=== PATIENT | female | born 1955 | race Caucasian/White ===

== ENCOUNTER 2024-02-03 13:18 | Outpatient (AMB) | payer OTHER, MEDICAID, SELFPAY ==
[2024-02-03 13:46] VITALS: BP 113/79; PULSE 91; RESP 18; TEMP 36.3; O2SAT 91; BMI 34.2
--- NOTE | 2024-02-03 13:46 | PD.ORTHCLVIS ---
Vital signs 02/03/24 13:46 Height 1.75 m Height Method Stated Weight 104.837 kg Weight Measurement Method Standing Scale BMI 34.2 BP 113/79 Blood Pressure Source Automatic Cuff Blood Pressure Location Right Upper Arm Position Sitting Respiration 18 Pulse 91 Pulse Source Monitor Temp 97.3 F Temp Source Temporal Artery Scan Pulse Oximetry (%) 91 L Oxygen Delivery Method Room Air Med/Allergies Allergies & Medications Allergies No Known Allergies Allergy (Verified 02/03/24 13:48) Medication Reconciliation alprazolam 2 mg tablet 2 mg PO QDAY 11/22/21 [History Confirmed 02/03/24] baclofen 10 mg tablet 10 mg PO TID 11/22/21 [History Confirmed 02/03/24] citalopram 40 mg tablet 40 mg PO DAILY 11/22/21 [History Confirmed 02/03/24] ergocalciferol (vitamin D2) 25,000 unit capsule 50,000 unit PO QWEEK 11/22/21 [History Confirmed 02/03/24] pregabalin 100 mg capsule 100 mg PO BID 11/22/21 [History Confirmed 02/03/24] trazodone 100 mg tablet 100 mg PO QDAY 11/22/21 [History Confirmed 02/03/24] Subjective Visit Visit for: follow up visit, hip and knee Immunization / Flu Flu Vaccine in the Last 12 Months: No Flu Vaccine Exclusion Criteria: No Exclusion Criteria History of Present Illness Chief complaint: F/U HIP AND KNEE PAIN Deb is a pleasant 67-year-old female who presents today for bilateral knee pain. She reports the right knee is worse than the left. This been ongoing for several years. She tried meloxicam and diclofenac. The last injections were three months ago and she has been doing well until a week ago. The pain is affecting her quality life. She is unable to walk greater than 2 blocks. She wants bialteral knee injections today. Pain Pain level (0-10): 4 Pain duration: ALL DAY Pain location: groin, inside (medial), outside (lateral), anterior and posterior Pain quality: sharp, dull and aching Pain timing: increases with activity Associated signs & symptoms: stiffness Ambulatory data Ambulatory device: none Treatments Improvement with previous injections: No Improvement with PT: No Improvement with NSAIDS: n/a Review of Systems Review of Systems: All systems negative unless otherwise noted in HPI. Exam Exam Patient is in no acute distress and is cooperative with the examination today. Breathing is nonlabored. In no respiratory distress. Bilateral extremities were evaluated and demonstrates sensation intact to light touch. Palpable pedal pulses are present. No significant edema is present. Bilateral hips were examined. The patient has no pain with log roll of the hips. Internal rotation to 30 degrees and external rotation to 30 degrees is painless. Negative FADIR. The left knee was examined. The left knee is in [varus] alignment. Range of motion from [0-115] degrees. Knee is stable to varus and valgus as well as AP translation with <5mm. Patient has a [negative] McMurrays. There is [no] pain with patellofemoral compression and [no] crepitus noted. The knee is [tender] to palpation [medially]. The right knee was also examined. The right knee is in [varus] alignment. Range of motion from [0-120] degrees. Knee is stable to varus and valgus as well as AP translation with <5mm. Patient has a [negative] McMurrays. There is [no] pain with patellofemoral compression and [no] crepitus noted. The knee is [tender] to palpation [medially]. X-rays demonstrate significant joint space narrowing and osteophytes. These are nonweightbearing films Assessment and Plan Problem List (1) Bilateral primary osteoarthritis of knee: Status: Acute Plan: Patient is a 67-year-old female with bilateral knee pain and bilateral knee osteoarthritis. The pain is affecting quality life and happiness. She would like repeat bilateral knee injections today. We also discussed weight loss, and physical therapy, and other conservative treatments Recommend knee cortisone injections as patient would like to proceed with conservative treatment at this time. The risks and benefits of the procedure were reviewed with the patient and patient gave verbal consent to continue with the procedure. Procedure: performed by Dr. Pablo Using sterile technique the Bilateral knees were thoroughly prepped with alcohol, and approximately 1 cc of Kenalog 40 mg/mL and 4 cc of 1% lidocaine was injected into each knee without resistance into the medial tibial femoral joint space. The patient tolerated the procedure. (2) Bilateral knee pain: Status: Acute Advanced Care Planning Discussion Advance care planning discussed with:: patient Office Procedures GNS Level of Care Nursing/Assessment Patient Status: Established Patient Nursing Assessment/Reassesment: Medication Reconciliation, Update PMH in EMR and Vital Signs Coordination of Care: Complex Care and Chronic Disease 1-5, Education Complex Pt/Fam, Consent,records obtained, informed consent, Results/Orders obtained and Staff clarify orders Established Patient Charge Established Patient Point Assignment: 95 Established Patient Point Charge: EP Level 3 (80-115) Surgical Proc/IM SQ injection Major Surgical Procedure: Yes (BILATERAL KNEE INJECTION) Medication Given Medication Given Medication Given: Yes Documented Dose Given: 8 Route: Infiitration Medication Given Medication Given Medication Given: Yes Documented Dose Given: 1 Route: Infiitration Office Meds Xylocaine 10 mg/mL (1 %) injection solution Performing Provider: Alan Pablo MD Performing Location: [facility] Administered by: Alan Pablo MD on 02/03/24 14:06 Dose Route Admin Location Dispensed Lot Number Expiration Date [facility] Lab [place] 40 mL Infiltration 40 mL [id number] 10/20/26 08724-776-24 [facility] triamcinolone acetonide 40 mg/mL suspension for injection Performing Provider: Alan Pablo MD Performing Location: [facility] Administered by: Alan Pablo MD on 02/03/24 14:06 Dose Route Admin Location Dispensed Lot Number Expiration Date [facility] Lab Head 80 mg Infiltration 2 mL [id number] 10/20/25 [address]-8 [employer] Past Medical History Past Medical History Have you ever been diagnosed with any of the following: Neurological Problems Seizures: No Cardiology Problems Congestive Heart Failure: No Respiratory Problems Chronic Obstructive Pulmonary Disease (COPD): No Genital/Urinary Problems Renal Disease: No Reproductive Problems Pelvic Inflammatory Disease: No Musculoskeletal Problems Fibromyalgia: Yes Endocrine Problems Diabetes Mellitus Type 1: No Diabetes Mellitus Type 2: No Psychologic Problems Depression: Yes Anxiety: Yes Other Problems Blood Transfusions: No Anesthesia Reactions: No
== END 2024-02-03 14:19 | disposition home or self-care (01) ==
LOC: HODSRG 13:18
PROVIDERS: PCP Registered Nurse Community Health; Referring Provider Registered Nurse Community Health; Supervising Provider Orthopaedic Surgery Adult Reconstructive Orthopaedic Surgery; Visit Provider Orthopaedic Surgery Adult Reconstructive Orthopaedic Surgery
DX: M17.0 Bilateral primary osteoarthritis of knee (principal); M25.561 Pain in right knee; M25.562 Pain in left knee
CPT/HCPCS: 20610; 99213; J3301; J3490; G0463

== ENCOUNTER 2024-05-11 10:17 | Outpatient (AMB) | payer OTHER, MEDICAID, SELFPAY ==
[2024-05-11 11:02] VITALS: BP 146/85; PULSE 88; RESP 18; TEMP 36.3; O2SAT 95; BMI 34.5
--- NOTE | 2024-05-11 11:02 | PD.ORTHCLVIS ---
Vital signs 05/11/24 11:02 Height 1.75 m Height Method Stated Weight 105.914 kg Weight Measurement Method Standing Scale BMI 34.5 BP 146/85 H Blood Pressure Source Automatic Cuff Blood Pressure Location Left Upper Arm Position Sitting Respiration 18 Pulse 88 Pulse Source Monitor Temp 97.3 F Temp Source Temporal Artery Scan Pulse Oximetry (%) 95 Oxygen Delivery Method Room Air Med/Allergies Allergies & Medications Allergies No Known Allergies Allergy (Verified 05/11/24 11:02) Medication Reconciliation alprazolam 2 mg tablet 2 mg PO QDAY 11/22/21 [History Confirmed 05/11/24] Held on 11/22/21. Instructions: Resume on 11/23/21. baclofen 10 mg tablet 10 mg PO TID 11/22/21 [History Confirmed 05/11/24] citalopram 40 mg tablet 40 mg PO DAILY 11/22/21 [History Confirmed 05/11/24] ergocalciferol (vitamin D2) 25,000 unit capsule 50,000 unit PO QWEEK 11/22/21 [History Confirmed 05/11/24] pregabalin 100 mg capsule 100 mg PO BID 11/22/21 [History Confirmed 05/11/24] trazodone 100 mg tablet 100 mg PO QDAY 11/22/21 [History Confirmed 05/11/24] Held on 11/22/21. Instructions: Resume on 11/23/21. Exam Exam Patient is in no acute distress and is cooperative with the examination today. Breathing is nonlabored. In no respiratory distress. Bilateral extremities were evaluated and demonstrates sensation intact to light touch. Palpable pedal pulses are present. No significant edema is present. Bilateral hips were examined. The patient has no pain with log roll of the hips. Internal rotation to 30 degrees and external rotation to 30 degrees is painless. Negative FADIR. The left knee was examined. The left knee is in [varus] alignment. Range of motion from [0-115] degrees. Knee is stable to varus and valgus as well as AP translation with <5mm. Patient has a [negative] McMurrays. There is [no] pain with patellofemoral compression and [no] crepitus noted. The knee is [tender] to palpation [medially]. The right knee was also examined. The right knee is in [varus] alignment. Range of motion from [0-120] degrees. Knee is stable to varus and valgus as well as AP translation with <5mm. Patient has a [negative] McMurrays. There is [no] pain with patellofemoral compression and [no] crepitus noted. The knee is [tender] to palpation [medially]. X-rays demonstrate significant joint space narrowing and osteophytes. These are nonweightbearing films Assessment and Plan Problem List (1) Bilateral primary osteoarthritis of knee: Status: Acute Plan: Patient is a 67-year-old female with bilateral knee pain and bilateral knee osteoarthritis. The pain is affecting quality life and happiness. She would like repeat bilateral knee injections today. We also discussed weight loss, and physical therapy, and other conservative treatments Recommend knee cortisone injections as patient would like to proceed with conservative treatment at this time. The risks and benefits of the procedure were reviewed with the patient and patient gave verbal consent to continue with the procedure. Procedure: performed by Dr. Pablo Using sterile technique the Bilateral knees were thoroughly prepped with alcohol, and approximately 1 cc of Kenalog 40 mg/mL and 4 cc of 1% lidocaine was injected into each knee without resistance into the medial tibial femoral joint space. The patient tolerated the procedure. (2) Bilateral knee pain: Status: Acute Advanced Care Planning Discussion Advance care planning discussed with:: patient Office Procedures GNS Level of Care Nursing/Assessment Patient Status: Established Patient Nursing Assessment/Reassesment: Medication Reconciliation, Update PMH in EMR and Vital Signs Coordination of Care: Complex Care and Chronic Disease 1-5, Education Complex Pt/Fam, Consent,records obtained, informed consent, Results/Orders obtained and Staff clarify orders Established Patient Charge Established Patient Point Assignment: 95 Established Patient Point Charge: EP Level 3 (80-115) Surgical Proc/IM SQ injection Major Surgical Procedure: Yes (BILATERAL KNEE INJECTION) Medication Given Medication Given Medication Given: Yes Documented Dose Given: 8 Route: Infiitration Medication Given Medication Given Medication Given: Yes Documented Dose Given: 2 Route: Infiitration Office Meds Xylocaine 10 mg/mL (1 %) injection solution Performing Provider: Alan Pablo MD Performing Location: [facility] Administered by: Alan Pablo MD on 05/11/24 11:50 Dose Route Admin Location Dispensed Lot Number Expiration Date [facility] [place] 40 mL Infiltration 40 mL [id number] 09/21/27 82099-874-01 [facility] triamcinolone acetonide 40 mg/mL suspension for injection Performing Provider: Alan Pablo MD Performing Location: [facility] Administered by: Alan Pablo MD on 05/11/24 11:50 Dose Route Admin Location Dispensed Lot Number Expiration Date [place] 80 mg Infiltration 2 mL [id number] 08/20/25 0851-2964-58 [facility] [place] Intake Visit Data Collection New Patient or Established: Established Patient (seen at [facility] within 3 years) Reason for Visit:: BL KNEE INJECTION Seen by Clinical Staff ONLY (RN/MA): No Scrum Master Required: No PCP or OBGYN visit in last 3 months: Yes Hx Now: No Do You Feel Safe at Home: Yes Authorities Contacted: N/A Questionairres Past Medical History Past Medical History Have you ever been diagnosed with any of the following: Neurological Problems Seizures: No Cardiology Problems Congestive Heart Failure: No Respiratory Problems Chronic Obstructive Pulmonary Disease (COPD): No Genital/Urinary Problems Renal Disease: No Reproductive Problems Pelvic Inflammatory Disease: No Musculoskeletal Problems Fibromyalgia: Yes Endocrine Problems Diabetes Mellitus Type 1: No Diabetes Mellitus Type 2: No Psychologic Problems Depression: Yes Anxiety: Yes Other Problems Blood Transfusions: No Anesthesia Reactions: No Subjective Visit Visit for: follow up visit, knee (BILATERAL) and injections Immunization / Flu Flu Vaccine in the Last 12 Months: No Flu Vaccine Exclusion Criteria: No Exclusion Criteria History of Present Illness Chief complaint: Bilateral knee pain Deb is a pleasant 61 open female with bilateral knee pain and bilateral knee arthritis. The last knee injections worked for over 3 months. She would like new injections today. Pain Pain level (0-10): 4 Pain duration: ALL DAY Pain location: inside (medial) and anterior Pain quality: sharp and aching Pain timing: increases with activity and stairs Associated signs & symptoms: weakness Ambulatory data Ambulatory device: none Treatments Number of previous injections: 2 Improvement with previous injections: Yes Improvement with PT: No Improvement with NSAIDS: no Review of Systems Review of Systems: All systems negative unless otherwise noted in HPI.
== END 2024-05-11 11:20 | disposition home or self-care (01) ==
PROVIDERS: PCP Registered Nurse Community Health; Referring Provider Registered Nurse Community Health; Supervising Provider Orthopaedic Surgery Adult Reconstructive Orthopaedic Surgery; Visit Provider Orthopaedic Surgery Adult Reconstructive Orthopaedic Surgery
DX: M17.0 Bilateral primary osteoarthritis of knee (principal); M25.561 Pain in right knee; M25.562 Pain in left knee
CPT/HCPCS: 20610; 99213; J3301; J3490; G0463

== ENCOUNTER → 2024-06-29 | Outpatient (CLI) | payer OTHER, MEDICAID, SELFPAY ==
--- NOTE | 2024-06-29 11:15 | XR_ITS ---
Examination: Bilateral knees 2 views Right lateral knee left lateral knee 2 views Bilateral axial knees single view Technique: Bilateral AP knees standing single view, bilateral PA knees standing single view flexion Standing lateral right and left knees 2 views Bilateral axial knees single view total 5 views Exam date and time: June 29, 2024 1233 hrs. Indications: Bilateral knee pain beginning 5 years ago. Findings: Right knee advanced tricompartment osteoarthritis [id number] narrowing medial joint space right knee Left knee advanced tricompartment osteoarthritis [id number] narrowing lateral joint space left knee No patellar dislocation No fractures Impression: Bilateral advanced tricompartment osteoarthritis
== END | disposition home or self-care (01) ==
LOC: SDIM 11:06
PROVIDERS: PCP Registered Nurse Community Health; Referring Provider Orthopaedic Surgery Adult Reconstructive Orthopaedic Surgery; Visit Provider Orthopaedic Surgery Adult Reconstructive Orthopaedic Surgery
DX: M17.0 Bilateral primary osteoarthritis of knee (principal); M25.862 Other specified joint disorders, left knee; M25.861 Other specified joint disorders, right knee
CPT/HCPCS: 73564

== ENCOUNTER 2024-08-06 08:53 | Outpatient (AMB) | payer OTHER, MEDICAID, SELFPAY ==
[2024-08-06 09:24] VITALS: BP 114/76; PULSE 97; RESP 19; TEMP 36.4; O2SAT 97; BMI 34.5
--- NOTE | 2024-08-06 09:24 | ORTHONT_ITS ---
Vital signs 08/06/24 09:24 Height 1.75 m Height Method Stated Weight 105.829 kg Weight Measurement Method Standing Scale BMI 34.5 BP 114/76 Blood Pressure Source Automatic Cuff Blood Pressure Location Right Upper Arm Position Sitting Respiration 19 Pulse 97 Pulse Source Monitor Temp 97.5 F Temp Source Oral Pulse Oximetry (%) 97 Oxygen Delivery Method Room Air Med/Allergies Allergies & Medications Allergies No Known Allergies Allergy (Verified 08/06/24 09:25) Medication Reconciliation alprazolam 2 mg tablet 2 mg PO QDAY 11/22/21 [History Confirmed 08/06/24] Held on 11/22/21. Instructions: Resume on 11/23/21. baclofen 10 mg tablet 10 mg PO TID 11/22/21 [History Confirmed 08/06/24] citalopram 40 mg tablet 40 mg PO DAILY 11/22/21 [History Confirmed 08/06/24] ergocalciferol (vitamin D2) 25,000 unit capsule 50,000 unit PO QWEEK 11/22/21 [History Confirmed 08/06/24] pregabalin 100 mg capsule 100 mg PO BID 11/22/21 [History Confirmed 08/06/24] trazodone 100 mg tablet 100 mg PO QDAY 11/22/21 [History Confirmed 08/06/24] Held on 11/22/21. Instructions: Resume on 11/23/21. meloxicam 7.5 mg tablet 7.5 mg PO QDAY #45 tabs 08/06/24 [Rx] Exam Exam Patient is in no acute distress and is cooperative with the examination today. Breathing is nonlabored. In no respiratory distress. Bilateral extremities were evaluated and demonstrates sensation intact to light touch. Palpable pedal pulses are present. No significant edema is present. Bilateral hips were examined. The patient has no pain with log roll of the hips. Internal rotation to 30 degrees and external rotation to 30 degrees is painless. Negative FADIR. The left knee was examined. The left knee is in [varus] alignment. Range of motion from [0-115] degrees. Knee is stable to varus and valgus as well as AP translation with <5mm. Patient has a [negative] McMurrays. There is [no] pain with patellofemoral compression and [no] crepitus noted. The knee is [tender] to palpation [medially]. The right knee was also examined. The right knee is in [varus] alignment. Range of motion from [0-120] degrees. Knee is stable to varus and valgus as well as AP translation with <5mm. Patient has a [negative] McMurrays. There is [no] pain with patellofemoral compression and [no] crepitus noted. The knee is [tender] to palpation [medially]. X-rays demonstrate significant joint space narrowing and osteophytes. Assessment and Plan Problem List (1) Bilateral primary osteoarthritis of knee: Status: Acute Plan: Patient is a 67-year-old female with bilateral knee pain and bilateral knee osteoarthritis. The pain is affecting quality life and happiness. She would like repeat bilateral knee injections today. We also discussed weight loss, and physical therapy, and other conservative treatments Recommend knee cortisone injections as patient would like to proceed with conservative treatment at this time. The risks and benefits of the procedure were reviewed with the patient and patient gave verbal consent to continue with the procedure. Procedure: performed by Dr. Pablo Using sterile technique the Bilateral knees were thoroughly prepped with alcohol, and approximately 1 cc of Kenalog 40 mg/mL and 4 cc of 1% lidocaine was injected into each knee without resistance into the medial tibial femoral joint space. The patient tolerated the procedure. (2) Bilateral knee pain: Status: Acute Advanced Care Planning Discussion Advance care planning discussed with:: patient Office Procedures GNS Level of Care Nursing/Assessment Patient Status: Established Patient Nursing Assessment/Reassesment: Medication Reconciliation, Update PMH in EMR and Vital Signs Coordination of Care: Complex Care/Chronic Disease 5 or more, Education Complex Pt/Fam, Consent,records obtained, informed consent, 2-3 Insurance Autorizations needed, Results/Orders obtained and Staff clarify orders Established Patient Charge Established Patient Point Assignment: 125 Established Patient Point Charge: EP Level 4 (120-155) Surgical Proc/IM SQ injection Major Surgical Procedure: Yes (BILATERAL KNEE PAIN ) Medication Given Medication Given Medication Given: Yes Documented Dose Given: 8 Route: Infiitration Medication Given Medication Given Medication Given: Yes Documented Dose Given: 2 Route: Infiitration Office Meds Xylocaine 10 mg/mL (1 %) injection solution Performing Provider: Alan Pablo MD Performing Location: [facility] Administered by: Alan Pablo MD on 08/06/24 09:54 Dose Route Admin Location Dispensed Lot Number Expiration Date [facility] Manager Building 40 mL Infiltration KNEE 40 mL [id number] 10/23/27 67652-756-83 [facility] triamcinolone acetonide 40 mg/mL suspension for injection Performing Provider: Alan Pablo MD Performing Location: [facility] Administered by: Alan Pablo MD on 08/06/24 09:54 Dose Route Admin Location Dispensed Lot Number Expiration Date [facility] Manager Building 80 mg intra-articular KNEE 2 mL [id number] 02/21/26 4972-7899-14 [facility] [place] Intake Visit Data Collection New Patient or Established: Established Patient (seen at [facility] within 3 years) Reason for Visit:: BILATERAL KNEE INJECTIONS Seen by Clinical Staff ONLY (RN/MA): No Nutrition Educator Required: No PCP or OBGYN visit in last 3 months: Yes Hx Now: No Do You Feel Safe at Home: Yes Authorities Contacted: N/A Questionairres Past Medical History Past Medical History Have you ever been diagnosed with any of the following: Neurological Problems Seizures: No Cardiology Problems Congestive Heart Failure: No Respiratory Problems Chronic Obstructive Pulmonary Disease (COPD): No Smoking: Yes (1 A WEEK IF SHE FEELS LIKE IT PER PATIENT ) Smoking Cessation Counseling: Yes Genital/Urinary Problems Renal Disease: No Reproductive Problems Pelvic Inflammatory Disease: No Musculoskeletal Problems Fibromyalgia: Yes Endocrine Problems Diabetes Mellitus Type 1: No Diabetes Mellitus Type 2: No Psychologic Problems Depression: Yes Anxiety: Yes Other Problems Blood Transfusions: No Anesthesia Reactions: No Subjective Visit Visit for: follow up visit, knee and injections Immunization / Flu Flu Vaccine in the Last 12 Months: No Flu Vaccine Exclusion Criteria: No Exclusion Criteria History of Present Illness Chief complaint: BILATERAL KNEE INJECTIONS Deb is a pleasant 61 open female with bilateral knee pain and bilateral knee arthritis. Getting injections with us. The last injections have not worked for a long period of time. We discussed surgery today but she would want more injections Personal History Red flag PMH: smoker (1 A WEEK IF SHE FEELS LIKE IT PER PATIENT) BMI Counceling provided: Yes Pain Pain level (0-10): 5 Pain duration: ALL DAY Pain location: outside (lateral), anterior and posterior Pain quality: dull, aching and burning Pain timing: night, increases with activity and stairs Associated signs & symptoms: stiffness Ambulatory data Ambulatory device: none Treatments Number of previous injections: 2 Improvement with previous injections: Yes Improvement with PT: No Improvement with NSAIDS: yes Review of Systems Review of Systems: All systems negative unless otherwise noted in HPI.
== END 2024-08-06 09:54 | disposition home or self-care (01) ==
LOC: HODSRG 08:53
PROVIDERS: PCP Registered Nurse Community Health; Referring Provider Registered Nurse Community Health; Supervising Provider Orthopaedic Surgery Adult Reconstructive Orthopaedic Surgery; Visit Provider Orthopaedic Surgery Adult Reconstructive Orthopaedic Surgery
DX: M17.0 Bilateral primary osteoarthritis of knee (principal); M25.561 Pain in right knee; M25.562 Pain in left knee
CPT/HCPCS: 20610; 99213; 99214; J3301; J3490; G0463

== ENCOUNTER 2024-12-16 13:41 | Outpatient (AMB) | payer OTHER, MEDICAID, SELFPAY ==
--- NOTE | 2024-12-16 14:12 | ORTHONT_ITS ---
Vital signs 12/16/24 14:13 Height 1.75 m Height Method Stated Weight 108.437 kg Weight Measurement Method Standing Scale BMI 35.4 BP 131/81 H Blood Pressure Source Automatic Cuff Blood Pressure Location Left Upper Arm Position Sitting Respiration 19 Pulse 100 Pulse Source Monitor Temp 97.3 F Temp Source Temporal Artery Scan Pulse Oximetry (%) 92 L Oxygen Delivery Method Room Air Med/Allergies Allergies & Medications Allergies No Known Allergies Allergy (Verified 12/16/24 14:14) Medication Reconciliation alprazolam 2 mg tablet 2 mg PO QDAY 11/22/21 [History Confirmed 12/16/24] Held on 11/22/21. Instructions: Resume on 11/23/21. baclofen 10 mg tablet 10 mg PO TID 11/22/21 [History Confirmed 12/16/24] citalopram 40 mg tablet 40 mg PO DAILY 11/22/21 [History Confirmed 12/16/24] ergocalciferol (vitamin D2) 25,000 unit capsule 50,000 unit PO QWEEK 11/22/21 [History Confirmed 12/16/24] pregabalin 100 mg capsule 100 mg PO BID 11/22/21 [History Confirmed 12/16/24] trazodone 100 mg tablet 100 mg PO QDAY 11/22/21 [History Confirmed 12/16/24] Held on 11/22/21. Instructions: Resume on 11/23/21. meloxicam 7.5 mg tablet 7.5 mg PO QDAY #45 tabs 08/06/24 [Rx Confirmed 12/16/24] Exam Exam Patient is in no acute distress and is cooperative with the examination today. Breathing is nonlabored. In no respiratory distress. Bilateral extremities were evaluated and demonstrates sensation intact to light touch. Palpable pedal pulses are present. No significant edema is present. Bilateral hips were examined. The patient has no pain with log roll of the hips. Internal rotation to 30 degrees and external rotation to 30 degrees is painless. Negative FADIR. The left knee was examined. The left knee is in [varus] alignment. Range of motion from [0-115] degrees. Knee is stable to varus and valgus as well as AP translation with <5mm. Patient has a [negative] McMurrays. There is [no] pain with patellofemoral compression and [no] crepitus noted. The knee is [tender] to palpation [medially]. The right knee was also examined. The right knee is in [varus] alignment. Range of motion from [0-120] degrees. Knee is stable to varus and valgus as well as AP translation with <5mm. Patient has a [negative] McMurrays. There is [no] pain with patellofemoral compression and [no] crepitus noted. The knee is [tender] to palpation [medially]. X-rays demonstrate significant joint space narrowing and osteophytes. Assessment and Plan Problem List (1) Bilateral primary osteoarthritis of knee: Status: Acute Plan: Patient is a 67-year-old female with bilateral knee pain and bilateral knee osteoarthritis. The pain is affecting quality life and happiness. She would like repeat bilateral knee injections today. We also discussed weight loss, and physical therapy, and other conservative treatments Recommend knee cortisone injection as patient would like to proceed with conservative treatment at this time. The risks and benefits of the procedure were reviewed with the patient and patient gave verbal consent to continue with the procedure. Procedure: performed by Dr. Pablo Using sterile technique the Right knee was thoroughly prepped with alcohol, and approximately 1 cc of Depo-Medrol 80mg/mL and 4 cc of 0.2% ropivacaine was injected without resistance into the medial tibial femoral joint space. The patient tolerated the procedure. Recommend knee cortisone injection as patient would like to proceed with conservative treatment at this time. The risks and benefits of the procedure were reviewed with the patient and patient gave verbal consent to continue with the procedure. Procedure: performed by Dr. Pablo Using sterile technique the leftknee was thoroughly prepped with alcohol, and approximately 1 cc of Depo- Medrol 80mg/mL and 4 cc of 0.2% ropivacaine was injected without resistance into the medial tibial femoral joint space. The patient tolerated the procedure. (2) Bilateral knee pain: Status: Acute Advanced Care Planning Discussion Advance care planning discussed with:: patient Office Procedures GNS Level of Care Nursing/Assessment Patient Status: Established Patient Nursing Assessment/Reassesment: Medication Reconciliation, Update PMH in EMR and Vital Signs Coordination of Care: Complex Care and Chronic Disease 1-5, Education Complex Pt/Fam, Consent,records obtained, informed consent, Results/Orders obtained and Staff clarify orders Established Patient Charge Established Patient Point Assignment: 95 Established Patient Point Charge: EP Level 3 (80-115) Surgical Proc/IM SQ injection Minor Surgical Procedure: Yes (BILATERAL KNEE INJECTION) Medication Given Medication Given Medication Given: Yes Documented Dose Given: 1 Route: Infiitration Medication Given Medication Given Medication Given: Yes Documented Dose Given: 4 Route: Infiitration Medication Given Medication Given Medication Given: Yes Documented Dose Given: 4 Route: Infiitration Office Meds methylprednisolone acetate 80 mg/mL suspension for injection Performing Provider: Alan Pablo MD Performing Location: [facility] Administered by: Alan Pablo MD on 12/16/24 14:16 Dose Route Admin Location Dispensed Lot Number Expiration Date Pack age [facility] [employer] 80 mg intra-articular 1 mL [id number] 02/20/26 [address]-6 [id number] [employer] methylprednisolone acetate 80 mg/mL suspension for injection Performing Provider: Alan Pablo MD Performing Location: [facility] Administered by: Alan Pablo MD on 12/16/24 14:16 Dose Route Admin Location Dispensed Lot Number Expiration Date Pack age [facility] [employer] 80 mg intra-articular 1 mL [id number] 02/20/26 [address]-6 7 [id number] [employer] ropivacaine (PF) 2 mg/mL (0.2 %) injection solution Performing Provider: Alan Pablo MD Performing Location: [facility] Administered by: Alan Pablo MD on 12/16/24 14:16 Dose Route Admin Location Dispensed Lot Number Expiration Date Pack age [facility] [employer] 20 mL Infiltration 20 mL [id number] 04/22/27 02937-685-31 [id number] [employer] ropivacaine (PF) 2 mg/mL (0.2 %) injection solution Performing Provider: Alan Pablo MD Performing Location: [facility] Administered by: Alan Pablo MD on 12/16/24 14:16 Dose Route Admin Location Dispensed Lot Number Expiration Date Pack age [facility] [employer] 20 mL Infiltration 20 mL [id number] 04/22/27 40378-632-31 [id number] [facility] Intake Visit Data Collection New Patient or Established: Established Patient (seen at [facility] within 3 years) Reason for Visit:: 3 MTHS BILATERAL KNEE INJECTIONS Seen by Clinical Staff ONLY (RN/MA): No Nurse Assistant Required: No PCP or OBGYN visit in last 3 months: Yes Hx Now: No Do You Feel Safe at Home: Yes Authorities Contacted: N/A Questionairres Past Medical History Past Medical History Have you ever been diagnosed with any of the following: Neurological Problems Seizures: No Cardiology Problems Congestive Heart Failure: No Respiratory Problems Chronic Obstructive Pulmonary Disease (COPD): No Smoking: Yes (1 A WEEK IF SHE FEELS LIKE IT PER PATIENT ) Smoking Cessation Counseling: Yes Genital/Urinary Problems Renal Disease: No Reproductive Problems Pelvic Inflammatory Disease: No Musculoskeletal Problems Fibromyalgia: Yes Endocrine Problems Diabetes Mellitus Type 1: No Diabetes Mellitus Type 2: No Psychologic Problems Depression: Yes Anxiety: Yes Other Problems Blood Transfusions: No Anesthesia Reactions: No Subjective Visit Visit for: follow up visit, knee and injections Immunization / Flu Flu Vaccine in the Last 12 Months: No Flu Vaccine Exclusion Criteria: No Exclusion Criteria History of Present Illness Chief complaint: BILATERAL KNEE INJECTIONS Deb is a pleasant 61 open female with bilateral knee pain and bilateral knee arthritis. The last injections provided great relief and she would like new ones today Personal History Red flag PMH: smoker (1 A WEEK IF SHE FEELS LIKE IT PER PATIENT) BMI Counceling provided: Yes Pain Pain level (0-10): 5 Pain duration: ALL DAY Pain location: outside (lateral), anterior and posterior Pain quality: dull, aching and burning Pain timing: night, increases with activity and stairs Associated signs & symptoms: stiffness Ambulatory data Ambulatory device: none Treatments Number of previous injections: 2 Improvement with previous injections: Yes Improvement with PT: No Improvement with NSAIDS: yes Review of Systems Review of Systems: All systems negative unless otherwise noted in HPI.
[2024-12-16 14:13] VITALS: BP 131/81; PULSE 100; RESP 19; TEMP 36.3; O2SAT 92; BMI 35.4
== END 2024-12-16 14:20 | disposition home or self-care (01) ==
LOC: HODSRG 13:41
PROVIDERS: Absent Provider Orthopaedic Surgery Adult Reconstructive Orthopaedic Surgery; PCP Registered Nurse Community Health; Referring Provider Registered Nurse Community Health; Supervising Provider Orthopaedic Surgery Adult Reconstructive Orthopaedic Surgery; Visit Provider Orthopaedic Surgery Adult Reconstructive Orthopaedic Surgery
DX: M17.0 Bilateral primary osteoarthritis of knee (principal); M25.562 Pain in left knee; M25.561 Pain in right knee
CPT/HCPCS: 20610; 99213; J1010; J2795; G0463

== ENCOUNTER → 2025-03-21 | Outpatient (CLI) | payer MEDICARE, MEDICAID, SELFPAY ==
--- NOTE | 2025-03-21 14:45 | XR_ITS ---
EXAMINATION: Cervical spine 4 views TECHNIQUE: AP, lateral, swimmer's lateral, AP odontoid cervical spine 4 views Date and time: March 21, 2025, 1456 hours INDICATIONS: Status post cervical fusion February 23, 2025. FINDINGS: Posterior transpedicular stabilization C1-C2 with satisfactory alignment Mild degenerative disc disease C4-C5, C5-C6, C6-C7 Intact odontoid IMPRESSION: Posterior transpedicular stabilization C1-C2 with satisfactory alignment
== END | disposition home or self-care (01) ==
LOC: SDIM 14:34
PROVIDERS: Referring Provider Physician Assistant; Visit Provider Physician Assistant
DX: Z98.1 Arthrodesis status (principal); M43.22 Fusion of spine, cervical region; Z98.890 Other specified postprocedural states
CPT/HCPCS: 72040

== ENCOUNTER 2025-03-22 13:22 | Outpatient (AMB) | payer MEDICARE, MEDICAID, SELFPAY ==
[2025-03-22 13:48] VITALS: BP 122/73; PULSE 99; RESP 16; TEMP 36.1; O2SAT 94; BMI 35.3
--- NOTE | 2025-03-22 13:48 | PD.ORTHCLVIS ---
Vital signs 03/22/25 13:48 Height 1.75 m Height Method Stated Weight 108.125 kg Weight Measurement Method Standing Scale BMI 35.3 BP 122/73 Blood Pressure Source Automatic Cuff Blood Pressure Location Left Upper Arm Position Sitting Respiration 16 Pulse 99 Pulse Source Monitor Temp 97.0 F Temp Source Temporal Artery Scan Pulse Oximetry (%) 94 L Oxygen Delivery Method Room Air Med/Allergies Allergies & Medications Allergies No Known Allergies Allergy (Verified 03/22/25 13:48) Medication Reconciliation alprazolam 2 mg tablet 2 mg PO QDAY 11/22/21 [History Confirmed 03/22/25] Held on 11/22/21. Instructions: Resume on 11/23/21. baclofen 10 mg tablet 10 mg PO TID 11/22/21 [History Confirmed 03/22/25] citalopram 40 mg tablet 40 mg PO DAILY 11/22/21 [History Confirmed 03/22/25] ergocalciferol (vitamin D2) 25,000 unit capsule 50,000 unit PO QWEEK 11/22/21 [History Confirmed 03/22/25] pregabalin 100 mg capsule 100 mg PO BID 11/22/21 [History Confirmed 03/22/25] trazodone 100 mg tablet 100 mg PO QDAY 11/22/21 [History Confirmed 03/22/25] Held on 11/22/21. Instructions: Resume on 11/23/21. meloxicam 7.5 mg tablet 7.5 mg PO QDAY #45 tabs 08/06/24 [Rx Confirmed 03/22/25] Exam Exam Patient is in no acute distress and is cooperative with the examination today. Breathing is nonlabored. In no respiratory distress. Bilateral extremities were evaluated and demonstrates sensation intact to light touch. Palpable pedal pulses are present. No significant edema is present. Bilateral hips were examined. The patient has no pain with log roll of the hips. Internal rotation to 30 degrees and external rotation to 30 degrees is painless. Negative FADIR. The left knee was examined. The left knee is in [varus] alignment. Range of motion from [0-115] degrees. Knee is stable to varus and valgus as well as AP translation with <5mm. Patient has a [negative] McMurrays. There is [no] pain with patellofemoral compression and [no] crepitus noted. The knee is [tender] to palpation [medially]. The right knee was also examined. The right knee is in [varus] alignment. Range of motion from [0-120] degrees. Knee is stable to varus and valgus as well as AP translation with <5mm. Patient has a [negative] McMurrays. There is [no] pain with patellofemoral compression and [no] crepitus noted. The knee is [tender] to palpation [medially]. X-rays demonstrate significant joint space narrowing and osteophytes. Assessment and Plan Problem List (1) Bilateral primary osteoarthritis of knee: Status: Acute Plan: Patient is a 67-year-old female with bilateral knee pain and bilateral knee osteoarthritis. The pain is affecting quality life and happiness. She would like repeat bilateral knee injections today. We also discussed weight loss, and physical therapy, and other conservative treatments. She is fresh from a spinal fusion recently in the neck., She wants to discuss surgery at the next visit. Recommend knee cortisone injection as patient would like to proceed with conservative treatment at this time. The risks and benefits of the procedure were reviewed with the patient and patient gave verbal consent to continue with the procedure. Procedure: performed by Dr. Pablo Using sterile technique the Right knee was thoroughly prepped with alcohol, and approximately 1 cc of Depo-Medrol 80mg/mL and 4 cc of 0.2% ropivacaine was injected without resistance into the medial tibial femoral joint space. The patient tolerated the procedure. Recommend knee cortisone injection as patient would like to proceed with conservative treatment at this time. The risks and benefits of the procedure were reviewed with the patient and patient gave verbal consent to continue with the procedure. Procedure: performed by Dr. Pablo Using sterile technique the leftknee was thoroughly prepped with alcohol, and approximately 1 cc of Depo-Medrol 80mg/mL and 4 cc of 0.2% ropivacaine was injected without resistance into the medial tibial femoral joint space. The patient tolerated the procedure. (2) Bilateral knee pain: Status: Acute Advanced Care Planning Discussion Advance care planning discussed with:: patient Office Procedures GNS Level of Care Nursing/Assessment Patient Status: Established Patient Nursing Assessment/Reassesment: Medication Reconciliation, Update PMH in EMR and Vital Signs Coordination of Care: Complex Care and Chronic Disease 1-5, Education Complex Pt/Fam, Consent,records obtained, informed consent, Results/Orders obtained and Staff clarify orders Established Patient Charge Established Patient Point Assignment: 95 Established Patient Point Charge: EP Level 3 (80-115) Surgical Proc/IM SQ injection Minor Surgical Procedure: Yes (BILATERAL KNEE INJECTION) Medication Given Medication Given Medication Given: Yes Documented Dose Given: 2 Route: Infiitration Medication Given Medication Given Medication Given: Yes Documented Dose Given: 8 Route: Infiitration Office Meds methylprednisolone acetate 80 mg/mL suspension for injection Performing Provider: Alan Pablo MD Performing Location: [facility] Administered by: Alan Pablo MD on 03/22/25 14:30 Dose Route Admin Location Dispensed Lot Number Expiration Date Package [facility] [employer] 160 mg intra-articular KNEE 2 mL [id number] 11/20/26 [address]-6 [id number] [employer] ropivacaine (PF) 2 mg/mL (0.2 %) injection solution Performing Provider: Alan Pablo MD Performing Location: [facility] Administered by: Alan Pablo MD on 03/22/25 14:30 Dose Route Admin Location Dispensed Lot Number Expiration Date Package [facility] [employer] 40 mL Infiltration KNEE 40 mL [id number] 08/20/28 03286-484-97 [id number] [facility] Intake Visit Data Collection New Patient or Established: Established Patient (seen at [facility] within 3 years) Reason for Visit:: 3MTH BILATERAL KNEE INJECTIONS Seen by Clinical Staff ONLY (RN/MA): No Attacher Required: No PCP or OBGYN visit in last 3 months: Yes Hx Now: No Do You Feel Safe at Home: Yes Authorities Contacted: N/A Questionairres Past Medical History Past Medical History Have you ever been diagnosed with any of the following: Neurological Problems Seizures: No Cardiology Problems Congestive Heart Failure: No Respiratory Problems Chronic Obstructive Pulmonary Disease (COPD): No Smoking: Yes (1 A WEEK IF SHE FEELS LIKE IT PER PATIENT ) Smoking Cessation Counseling: Yes Genital/Urinary Problems Renal Disease: No Reproductive Problems Pelvic Inflammatory Disease: No Musculoskeletal Problems Fibromyalgia: Yes Endocrine Problems Diabetes Mellitus Type 1: No Diabetes Mellitus Type 2: No Psychologic Problems Depression: Yes Anxiety: Yes Other Problems Blood Transfusions: No Anesthesia Reactions: No Subjective Visit Visit for: follow up visit, knee and injections Immunization / Flu Flu Vaccine in the Last 12 Months: No Flu Vaccine Exclusion Criteria: No Exclusion Criteria History of Present Illness Chief complaint: BILATERAL KNEE INJECTIONS Deb is a pleasant 69 yo female with bilateral knee pain and bilateral knee arthritis. The last injections provided great relief and she would like new ones today Personal History Red flag PMH: smoker (1 A WEEK IF SHE FEELS LIKE IT PER PATIENT) BMI Counceling provided: Yes Pain Pain level (0-10): 5 Pain duration: ALL DAY Pain location: outside (lateral), anterior and posterior Pain quality: dull, aching and burning Pain timing: night, increases with activity and stairs Associated signs & symptoms: stiffness Ambulatory data Ambulatory device: none Treatments Number of previous injections: 2 Improvement with previous injections: Yes Improvement with PT: No Improvement with NSAIDS: yes Review of Systems Review of Systems: All systems negative unless otherwise noted in HPI.
== END 2025-03-22 14:20 | disposition home or self-care (01) ==
LOC: HODSRG 13:22
PROVIDERS: PCP Registered Nurse Community Health; Referring Provider Registered Nurse Community Health; Supervising Provider Orthopaedic Surgery Adult Reconstructive Orthopaedic Surgery; Visit Provider Orthopaedic Surgery Adult Reconstructive Orthopaedic Surgery
DX: M17.0 Bilateral primary osteoarthritis of knee (principal); M25.561 Pain in right knee; M25.562 Pain in left knee
CPT/HCPCS: 20610; 99213; J1010; J2795; G0463